=== PATIENT | male | born 1985 | race Caucasian/White ===

== ENCOUNTER 2020-12-01 07:30 | Emergency (ER) | payer SELFPAY ==
[2020-12-01 07:38] VITALS: BP 142/83; PULSE 71; TEMP 97; BMI 27.6
[2020-12-01] MEDS ORDERED: ACETAMINOPHEN 325 MG TABLET (FP) PO ONE (08:21)
[2020-12-01] MEDS ORDERED: LIDOCAINE 5% TOPICAL PATCH TP ONE (08:21)
[2020-12-01] MEDS ORDERED: diazePAM 2 MG TABLET PO ONE (08:22)
[2020-12-01] MEDS ORDERED: diazePAM 2 MG TABLET ONE (08:25)
[2020-12-01] MEDS ORDERED: LIDOCAINE 5% TOPICAL PATCH ONE (08:26)
[2020-12-01] MEDS ORDERED: ACETAMINOPHEN 500 MG TABLET (FP) ONE (08:26)
[2020-12-01] MEDS ORDERED: KETOROLAC TROMETHAMINE 30 MG/1 ML VIAL ONE (09:06)
[2020-12-01] MEDS ORDERED: KETOROLAC TROMETHAMINE 60 MG/2 ML VIAL IM ONE (09:07)
[2020-12-01] MEDS ORDERED: LIDOCAINE PATCH REMOVAL MC ONE (21:00)
== END 2020-12-01 09:39 | disposition home or self-care (01) ==
LOC: JERFT 07:30 → JER 07:30 → JERFT 09:39
PROC: 3E0233Z Introduction of Anti-inflammatory into Muscle, Percutaneous Approach (ICD-10-PCS; principal; 2020-12-01)
DX: M54.5 Low back pain (principal)
CPT/HCPCS: 72100-TC-FY; 99284-25

== ENCOUNTER 2022-09-07 13:03 | Emergency (ER) | payer OTHER ==
[2022-09-07 14:21] VITALS: BP 120/73; PULSE 77; RESP 19; TEMP 98.9; BMI 25.8
[2022-09-07] MEDS ORDERED: METOCLOPRAMIDE HCL INJECTION 10 MG/2 ML VIAL IVPUSH ONE (14:58)
[2022-09-07] MEDS ORDERED: KETOROLAC TROMETHAMINE 30 MG/1 ML VIAL IVPUSH ONE (14:58)
[2022-09-07] MEDS ORDERED: SODIUM CHLORIDE 0.9% 500 ML INFUS.BAG IV ONE (14:59)
[2022-09-07] MEDS ORDERED: METOCLOPRAMIDE HCL INJECTION 10 MG/2 ML VIAL ONE (15:16)
[2022-09-07] MEDS ORDERED: KETOROLAC TROMETHAMINE 30 MG/1 ML VIAL ONE (15:17)
[2022-09-07 16:15] LABS: BASO % 0.9 % (0-2.0); EOS % 1.1 % (0-4.5); HEMATOCRIT 44.3 % (35.4-49); HEMOGLOBIN 15.1 GM/dL (11.7-16.9); MCH 31.1 pg (25.7-33.7); MEAN CELL VOLUME 91.4 fl (80-96); MEAN PLT VOLUME 9.4 fl (7.5-11.1); MONO % 7.7 % (3.8-10.2); NEUT % 67.3 % (42.8-82.8); PLATELET COUNT 251 10^3/uL (134-434); RBC 4.84 M/mm3 (4.00-5.60); RDW 13.1 % (11.9-15.9); WHITE BLOOD COUNT 9.8 K/mm3 (4.0-10.0)
[2022-09-07 16:44] LABS: CALCIUM 9.1 mg/dL (8.5-10.1)
[2022-09-07 16:45] LABS: ALBUMIN 4.1 g/dl (3.4-5.0); BLOOD UREA NITROGEN 17.9 mg/dL (7-18)
[2022-09-07 16:48] LABS: CREATININE 0.9 mg/dL (0.55-1.3)
[2022-09-07 16:49] LABS: BILIRUBIN,TOTAL 0.5 mg/dL (0.2-1); TOT PROT 8.1 g/dl (6.4-8.2)
== END 2022-09-07 17:25 | disposition home or self-care (01) ==
LOC: JER 13:03
PROC: 3E033GC Introduction of Other Therapeutic Substance into Peripheral Vein, Percutaneous Approach (ICD-10-PCS; principal; 2022-09-07)
PROC: 3E0333Z Introduction of Anti-inflammatory into Peripheral Vein, Percutaneous Approach (ICD-10-PCS; 2022-09-07)
PROC: 3E033GC Introduction of Other Therapeutic Substance into Peripheral Vein, Percutaneous Approach (ICD-10-PCS; 2022-09-07)
DX: J01.90 Acute sinusitis, unspecified (principal); R51.9 Headache, unspecified; R11.0 Nausea
CPT/HCPCS: 0241U-QW; 36415; 70450-TC; 80053; 85025; 99284-25

== ENCOUNTER 2022-11-28 09:07 | Emergency (ER) | payer OTHER ==
[2022-11-28] MEDS ORDERED: METOCLOPRAMIDE HCL INJECTION 10 MG/2 ML VIAL IVPUSH ONE (09:10)
[2022-11-28] MEDS ORDERED: morphine CARPU-JECT 4 MG/1 ML DISP.SYRIN IVPUSH ONE (09:11)
[2022-11-28 09:15] VITALS: TEMP 98.2; BMI 25.8
[2022-11-28] MEDS ORDERED: METOCLOPRAMIDE HCL INJECTION 10 MG/2 ML VIAL ONE (09:17)
[2022-11-28] MEDS ORDERED: morphine SULFATE 4 MG/ML VIAL ONE (09:17)
[2022-11-28 09:30] LABS: BASO % 0.9 % (0-2.0); EOS % 3.3 % (0-4.5); HEMOGLOBIN 15.3 GM/dL (11.7-16.9); LYMPH % 36.8 % (8-40); MCH 32.2 pg (25.7-33.7); MCHC 35.7 g/dl (32.0-35.9); MEAN CELL VOLUME 90.3 fl (80-96); MEAN PLT VOLUME 9.3 fl (7.5-11.1); MONO % 5.6 % (3.8-10.2); NEUT % 53.4 % (42.8-82.8); PLATELET COUNT 191 10^3/uL (134-434); RBC 4.76 M/mm3 (4.00-5.60); RDW 12.8 % (11.9-15.9); WHITE BLOOD COUNT 8.7 K/mm3 (4.0-10.0)
[2022-11-28 09:37] LABS: INR 1.07 (0.83-1.09); PROTHROMBIN TIME (PATIENT) 12.4 SEC (9.7-13.0)
[2022-11-28 09:55] LABS: ALBUMIN 4.2 g/dl (3.4-5.0); BLOOD UREA NITROGEN 9.7 mg/dL (7-18); CALCIUM 8.9 mg/dL (8.5-10.1)
[2022-11-28 09:58] LABS: CREATININE 0.8 mg/dL (0.55-1.3)
[2022-11-28 10:00] LABS: BILIRUBIN,TOTAL 0.6 mg/dL (0.2-1); TOT PROT 7.7 g/dl (6.4-8.2)
[2022-11-28 11:26] VITALS: BP 120/77
[2022-11-28 11:30] VITALS: PULSE 60; RESP 15
== END 2022-11-28 12:21 | disposition home or self-care (01) ==
LOC: JER 09:07
PROC: 3E033GC Introduction of Other Therapeutic Substance into Peripheral Vein, Percutaneous Approach (ICD-10-PCS; principal; 2022-11-28)
DX: R51.9 Headache, unspecified (principal)
CPT/HCPCS: 36415; 70450-TC; 80053; 85025; 85610; 86850; 86900; 86901; 93005; 93010; 99285-25

== ENCOUNTER 2023-01-14 14:12 | Inpatient (IN) | payer OTHER ==
[2023-01-14] MEDS ORDERED: METOCLOPRAMIDE HCL INJECTION 10 MG/2 ML VIAL IVPUSH ONE (14:43)
[2023-01-14] MEDS ORDERED: ACETAMINOPHEN 1000 MG/100 ML BAG IVPB ONE (14:43)
[2023-01-14] MEDS ORDERED: LACTATED RINGERS SOLUTION 1000 ML INFUS.BAG IV ONE (14:43)
[2023-01-14] MEDS ORDERED: ACETAMINOPHEN INJECTION 100 ML IVPB ONE (15:04)
[2023-01-14] MEDS ORDERED: METOCLOPRAMIDE HCL INJECTION 10 MG/2 ML VIAL ONE (15:04)
[2023-01-14 15:44] VITALS: BMI 26.3
[2023-01-14 15:58] LABS: URINE APPEARANCE CLEAR; URINE BILIRUBIN NEGATIVE (NEGATIVE); URINE COLOR YELLOW; URINE GLUCOSE (UA) NEGATIVE (NEGATIVE); URINE KETONE NEGATIVE (NEGATIVE); URINE LEUK ESTERASE NEGATIVE (NEGATIVE); URINE NITRITE NEGATIVE (NEGATIVE); URINE PROTEIN NEGATIVE (NEGATIVE); URINE UROBILINOGEN 0.2 mg/dL (0.2-1.0)
[2023-01-14 15:59] LABS: BASO % 0.8 % (0-2.0); EOS % 4.9 % (0-4.5); HEMOGLOBIN 14.1 GM/dL (11.7-16.9); LYMPH % 29.3 % (8-40); MCH 31.2 pg (25.7-33.7); MCHC 35.1 g/dl (32.0-35.9); MEAN CELL VOLUME 88.8 fl (80-96); MEAN PLT VOLUME 9.7 fl (7.5-11.1); MONO % 8.4 % (3.8-10.2); NEUT % 56.6 % (42.8-82.8); PLATELET COUNT 180 10^3/uL (134-434); RBC 4.51 M/mm3 (4.00-5.60); RDW 12.7 % (11.9-15.9); WHITE BLOOD COUNT 7.1 K/mm3 (4.0-10.0)
[2023-01-14 16:19] LABS: CALCIUM 8.8 mg/dL (8.5-10.1)
[2023-01-14 16:20] LABS: BLOOD UREA NITROGEN 12.3 mg/dL (7-18)
[2023-01-14 16:23] LABS: CREATININE 0.9 mg/dL (0.55-1.3)
[2023-01-14 16:25] LABS: BILIRUBIN,TOTAL 0.3 mg/dL (0.2-1); TOT PROT 7.3 g/dl (6.4-8.2)
[2023-01-14] MEDS ORDERED: ACETAMINOPHEN 325 MG TABLET (FP) PO PRN (22:23)
[2023-01-15] MEDS ORDERED: ACETAMINOPHEN 1000 MG/100 ML BAG IVPB PRN (02:44)
[2023-01-15] MEDS ORDERED: DEXTROSE 5%-NORMAL SALINE 1,000 ML IV SCH (02:45)
[2023-01-15 06:43] LABS: HEMOGLOBIN 14.3 GM/dL (11.7-16.9); MCH 31.6 pg (25.7-33.7); MCHC 35.8 g/dl (32.0-35.9); MEAN CELL VOLUME 88.1 fl (80-96); MEAN PLT VOLUME 10.5 fl (7.5-11.1); PLATELET COUNT 158 10^3/uL (134-434); RBC 4.54 M/mm3 (4.00-5.60); RDW 12.7 % (11.9-15.9)
[2023-01-15 06:47] LABS: INR 1.08 (0.83-1.09); PROTHROMBIN TIME (PATIENT) 12.5 SEC (9.7-13.0)
[2023-01-15 06:50] LABS: ACTIVATED PTT 31.7 SECONDS (25.2-36.5)
[2023-01-15 07:02] LABS: BLOOD UREA NITROGEN 11.4 mg/dL (7-18)
[2023-01-15 07:03] LABS: CALCIUM 8.3 mg/dL (8.5-10.1); MAGNESIUM 1.9 mg/dL (1.8-2.4)
[2023-01-15 07:05] LABS: PHOSPHOROUS 3.5 mg/dL (2.5-4.9)
[2023-01-15 07:06] LABS: CREATININE 0.8 mg/dL (0.55-1.3)
[2023-01-15] MEDS ORDERED: ACETAMINOPHEN INJECTION 100 ML IVPB ONE (11:21)
[2023-01-15 18:25] VITALS: BP 122/81; PULSE 66; RESP 18; TEMP 97.6
== END 2023-01-15 18:26 | disposition home or self-care (01) | DRG 58 ==
LOC: JER 14:12 → JERBED 16:38
PROVIDERS: ADMIT Internal Medicine; ATTEND Family Medicine
DX: G93.0 Cerebral cysts (principal); E16.2 Hypoglycemia, unspecified; G43.909 Migraine, unspecified, not intractable, without status migrainosus; M54.2 Cervicalgia; R55 Syncope and collapse
CPT/HCPCS: 36415; 70450-TC; 70553-TC; 80048; 80053; 81003; 82962; 83036; 83735; 84100; 84484; 85025; 85027; 85610; 85730; 87086; 93005; 93010; 99285-25; A9579; C9803-CS; U0003; U0005

== ENCOUNTER 2023-01-25 21:19 | Day surgery (SDC) | payer OTHER ==
[2023-01-25] MEDS ORDERED: LACTATED RINGERS SOLUTION 1000 ML INFUS.BAG IV ONE (21:29)
[2023-01-25] MEDS ORDERED: morphine CARPU-JECT 4 MG/1 ML DISP.SYRIN IVPUSH ONE (21:29)
[2023-01-25 21:38] VITALS: BMI 28.8
[2023-01-25] MEDS ORDERED: morphine SULFATE 4 MG/ML VIAL ONE (21:52)
[2023-01-25 22:07] LABS: BASO % 0.5 % (0-2.0); EOS % 1.7 % (0-4.5); HEMATOCRIT 38.3 % (35.4-49); HEMOGLOBIN 13.6 GM/dL (11.7-16.9); LYMPH % 18.4 % (8-40); MCH 30.7 pg (25.7-33.7); MCHC 35.6 g/dl (32.0-35.9); MEAN CELL VOLUME 86.3 fl (80-96); MEAN PLT VOLUME 9.5 fl (7.5-11.1); MONO % 6.9 % (3.8-10.2); NEUT % 72.5 % (42.8-82.8); PLATELET COUNT 196 10^3/uL (134-434); RBC 4.43 M/mm3 (4.00-5.60); RDW 12.5 % (11.9-15.9); WHITE BLOOD COUNT 13.1 K/mm3 (4.0-10.0)
[2023-01-25 22:16] LABS: INR 1.11 (0.83-1.09); PROTHROMBIN TIME (PATIENT) 12.9 SEC (9.7-13.0)
[2023-01-25 22:19] LABS: ACTIVATED PTT 31.1 SECONDS (25.2-36.5)
[2023-01-25 22:40] LABS: CALCIUM 8.3 mg/dL (8.5-10.1)
[2023-01-25 22:41] LABS: ALBUMIN 3.8 g/dl (3.4-5.0); BLOOD UREA NITROGEN 14.6 mg/dL (7-18)
[2023-01-25 22:44] LABS: CREATININE 0.8 mg/dL (0.55-1.3)
[2023-01-25 22:45] LABS: TOT PROT 7.1 g/dl (6.4-8.2)
[2023-01-25 22:46] LABS: BILIRUBIN,TOTAL 0.7 mg/dL (0.2-1)
[2023-01-25 22:59] LABS: URINE APPEARANCE CLEAR; URINE BILIRUBIN NEGATIVE (NEGATIVE); URINE COLOR YELLOW; URINE GLUCOSE (UA) NEGATIVE (NEGATIVE); URINE KETONE NEGATIVE (NEGATIVE); URINE LEUK ESTERASE NEGATIVE (NEGATIVE); URINE NITRITE NEGATIVE (NEGATIVE); URINE PROTEIN NEGATIVE (NEGATIVE); URINE UROBILINOGEN 0.2 mg/dL (0.2-1.0)
[2023-01-26] MEDS ORDERED: HYDROmorphone HCl 2 MG/ML VIAL IVPUSH ONE (00:05)
[2023-01-26] MEDS ORDERED: LACTATED RINGERS SOLUTION 1000 ML INFUS.BAG IV ONE (00:15)
[2023-01-26] MEDS ORDERED: HYDROmorphone HCl 2 MG/ML VIAL ONE ×2 (00:16→02:42)
[2023-01-26] MEDS ORDERED: CEFTRIAXONE 1,000 MG in DEXTROSE 5%-WATER - 50 ML IVPB ONE (00:22)
[2023-01-26] MEDS ORDERED: CEFTRIAXONE 1 GM/50 ML BAG ONE (00:44)
[2023-01-26] MEDS: HYDROmorphone HCl 2 MG/ML VIAL IVPUSH ONE ×2 (02:41→03:09)
[2023-01-26] MEDS ORDERED: DEXTROSE 5%-NORMAL SALINE 1,000 ML IV SCH (03:00)
[2023-01-26] MEDS ORDERED: morphine SULFATE 4 MG/ML VIAL IVPUSH ONE (10:33)
[2023-01-26] MEDS ORDERED: morphine SULFATE 4 MG/ML VIAL ONE (10:41)
[2023-01-26] MEDS ORDERED: LACTATED RINGERS SOLUTION 1,000 ML/1,000 ML INFUS.BAG IV SCH (10:45)
[2023-01-26] MEDS ORDERED: PROPOFOL 20 ML ONE (14:00)
[2023-01-26] MEDS ORDERED: ROCURONIUM BROMIDE 50 MG/5 ML SYRINGE ONE (14:00)
[2023-01-26] MEDS ORDERED: BUPIVACAINE HCL/PF 0.25% (2.5MG/ML) 10 ML VIAL IJ ONE ×2 (14:26)
[2023-01-26] MEDS ORDERED: NEOSTIGMINE METHYLSULFATE 0.5 MG/1 ML - 10 ML MDV ONE (15:02)
[2023-01-26] MEDS ORDERED: GLYCOPYRROLATE 0.2 MG/1 ML VIAL ONE ×2 (15:02)
[2023-01-26] MEDS ORDERED: oxyCODONE HCL 5 MG TABLET PO PRN (15:24)
[2023-01-26] MEDS ORDERED: ONDANSETRON 4 MG/2 ML VIAL IVPUSH PRN (15:24)
[2023-01-26] MEDS ORDERED: ACETAMINOPHEN INJECTION 100 ML IVPB ONE (16:10)
[2023-01-26] MEDS: ACETAMINOPHEN 1000 MG/100 ML BAG IVPB SCH ×2 (16:13→22:04)
[2023-01-26] MEDS: KETOROLAC TROMETHAMINE 30 MG/1 ML VIAL IVPUSH SCH (18:40)
[2023-01-26] MEDS ORDERED: CEFTRIAXONE 1 GM in DEXTROSE 5%-WATER - 50 ML IVPB SCH (22:00)
[2023-01-26] MEDS: DEXTROSE 5%-NORMAL SALINE 1,000 ML IV SCH (22:18)
[2023-01-27] MEDS: KETOROLAC TROMETHAMINE 30 MG/1 ML VIAL IVPUSH SCH ×2 (02:00→11:31)
[2023-01-27] MEDS: DEXTROSE 5%-NORMAL SALINE 1,000 ML IV SCH (03:36)
[2023-01-27] MEDS: ACETAMINOPHEN 1000 MG/100 ML BAG IVPB SCH ×3 (03:38→15:27)
[2023-01-27] MEDS ORDERED: ePHEDrine SULFATE 50 MG/1 ML AMPULE ONE (08:32)
[2023-01-27 16:03] VITALS: BP 105/62; PULSE 60; RESP 18; TEMP 99
== END 2023-01-27 16:22 | disposition home or self-care (01) ==
LOC: JER 21:19 → JERBED 01-26 00:23 → SUATTDRO 01-26 00:23 → UNDOADMIN 01-26 00:23 → JASUSAT 01-26 00:23 → J8W 01-26 16:43 → JASUSAT 01-27 16:22
PROVIDERS: ATTEND Family Medicine
PROC: 0DTJ4ZZ Resection of Appendix, Percutaneous Endoscopic Approach (ICD-10-PCS; principal; 2023-01-26 11:00)
DX: K35.890 Other acute appendicitis without perforation or gangrene (principal)
CPT/HCPCS: 0241U-QW; 36415; 74177-TC; 80053; 81003; 83690; 83735; 85025; 85610; 85730; 86850; 86900; 86901; 87086; 88304-TC; 93005; 93010; 94760; 99285-25; Q9967